=== PATIENT | female | born 1985 | race Caucasian/White ===

== ENCOUNTER 2019-07-02 17:58 | Emergency (ER) | payer MEDICAID ==
--- NOTE | 2019-07-02 19:29 | EDM.PDOC ---
ED HPI GENERAL MEDICAL PROBLEM - General Chief Complaint: Abdominal Pain Stated Complaint: abdominal pain Time Seen by Provider: 07/02/19 18:28 Source of Information: Reports: Patient History Limitations: Reports: No Limitations - History of Present Illness INITIAL COMMENTS - FREE TEXT/NARRATIVE: Patient comes to ER with complaint of lower abdominal pain/cramping that started around 5-5:30. Is 14 weeks . History of miscarriage last December. Has two health children at home. Reports relatively chronic discomfort in abdomen and back that has been bothersome with the . Also has been having issues with hard stools. Now is having looser stools over last several days. Denies bloody discharge vaginally. Has some mucus like discharge intermittently that is not new. No fevers/chills. No URI complaints. Denies SOB/respiratory changes. No chest pain. No palpitations. No urinary symptoms/UTI complaints/hematuria. Took two Tylenol which brought pain from an 8 down to a 2. lower abdomin Pain Score (Numeric/FACES): 3 - Related Data Allergies Allergy/AdvReac Type Severity Reaction Status Date / Time Bleach (Sodium Hypochlorite) Allergy shortness Verified 07/02/19 18:14 of breath, itching Sunlight Allergy rash, Uncoded 07/02/19 18:14 itching Home Meds: Home Meds Acetaminophen [Tylenol] 650 mg PO Q4H PRN 07/02/19 [History] Aspirin 81 mg PO DAILY 07/02/19 [History] Cyanocobalamin (Vitamin B12) [Vitamin B12] 1,000 mg PO DAILY 07/02/19 [History] Ferrous Sulfate 325 mg PO DAILY 07/02/19 [History] Insulin Aspart [NovoLOG] 6 units SUBCUT TIDMEALS 07/02/19 [History] Insulin Detemir [Levemir Flextouch] 41 unit SUBCUT BEDTIME 07/02/19 [History] Vit #76/Iron,Carb/Fa [Prenatabs Rx] 1 tab PO DAILY 07/02/19 [History] Past Medical History Endocrine/Metabolic History: Reports: Diabetes, Gestational, Diabetes, Type II, Obesity/BMI 30+ - History Comment History Comment: History of Learning Disorder Social & Family History - Tobacco Use Smoking Status *Q: Never Smoker Second Hand Smoke Exposure: Yes - Caffeine Use Caffeine Use: Reports: Soda - Recreational Drug Use Recreational Drug Use: No ED ROS GENERAL - Review of Systems Review Of Systems: Comprehensive ROS is negative, except as noted in HPI. ED EXAM, GENERAL - Physical Exam Exam: See Below Exam Limited By: No Limitations General Appearance: Alert, WD/WN, No Apparent Distress, Obese, Other ( intermittently winces in discomfort. Rubs lower abdomen and low back. ) Eye Exam: Bilateral Eye: EOMI, PERRL Ears: Normal External Exam, Hearing Grossly Normal Nose: No: Nasal Deformity, Nasal Swelling, Nasal Drainage Throat/Mouth: Normal Lips, Normal Voice, No Airway Compromise Head: Atraumatic, Normocephalic Neck: Normal Inspection, Supple, Non-Tender, Full Range of Motion Respiratory/Chest: No Respiratory Distress, Lungs Clear, Normal Breath Sounds, Chest Non-Tender Cardiovascular: Normal Peripheral Pulses, Regular Rate, Rhythm, No Edema, No Murmur GI/Abdominal: Normal Bowel Sounds, Soft, No Distention, No Abnormal Bruit, Tender (mild discomfort with palpation in lower mid abdomen/reproduces patient' s pain complaint). No: Guarding, Rigid, Rebound (Female) Exam: Deferred Rectal (Female) Exam: Deferred Back Exam: Other (no focal tenderness identified). No: CVA Tenderness (L), CVA Tenderness (R), Muscle Spasm Extremities: Non-Tender, Normal Capillary Refill Neurological: Alert, Oriented, Normal Cognition, Normal Gait, No Motor/Sensory Deficits Psychiatric: Normal Affect, Normal Mood Skin Exam: Warm, Dry, Intact, Normal Color Course - Vital Signs Last Recorded V/S: Last Vital Signs Temp 36.8 C 07/02/19 18:12 Pulse 77 07/02/19 18:12 Resp 18 07/02/19 18:12 BP 123/87 07/02/19 18:12 Pulse Ox 99 07/02/19 18:12 - Orders/Labs/Meds Labs: Laboratory Tests 07/02/19 07/02/19 07/02/19 Range/Units 18:09 18:35 18:35 WBC 10.5 H (4.0-10.2) K/uL RBC 4.35 (3.77-5.09) M/uL Hgb 13.2 (11.7-15.5) g/dL Hct 38.8 (34.0-46.0) % MCV 89.2 (84.0-98.0) fL MCH 30.3 (28.2-33.3) pg MCHC 34.0 (31.7-36.0) g/dL RDW 13.8 (11.2-14.1) % Plt Count 274 (150-350) K/uL Neut % (Auto) 71.4 (45.0-80.0) % Lymph % (Auto) 21.4 (10.0-50.0) % [place] % (Auto) 5.9 (2.0-14.0) % Eos % (Auto) 1.0 (0.0-5.0) % Baso % (Auto) 0.3 (0.0-2.0) % Neut # (Auto) 7.49 H (1.40-7.00) K/uL Lymph # (Auto) 2.24 (0.50-3.50) K/uL [place] # (Auto) 0.62 (0.00-1.00) K/uL Eos # (Auto) 0.10 (0.00-0.50) K/uL Baso # (Auto) 0.03 (0.00-0.20) K/uL Sodium 139 (136-145) mmol/L Potassium 4.1 (3.5-5.1) mmol/L Chloride 106 (98-107) mmol/L Carbon Dioxide 20.9 L (21.0-32.0) mmol/L BUN 15 (7-18) mg/dL Creatinine 0.50 L (0.51-1.17) mg/dL Est Cr Clr Drug Dosing 144.00 mL/min Estimated GFR (MDRD) > 60 mL/min Glucose 218 H (74-106) mg/dL Calcium 9.1 (8.5-10.1) mg/dL Total Bilirubin 0.1 L (0.2-1.0) mg/dL AST 14 L (15-37) U/L ALT 16 (12-78) U/L Alkaline Phosphatase 60 (46-116) IU/L Total Protein 6.8 (6.4-8.2) g/dL Albumin 2.8 L (3.4-5.0) g/dL HCG, Quant 01316 mIU/mL Specimen Type Urinvoid Urine Color Yellow Urine Appearance Clear Urine pH 6.0 (5.0-9.0) Ur Specific Lewis >= 1.030 (1.005-1.030) Urine Protein Negative (NEGATIVE) mg/dL Urine Glucose (UA) 500 H (NEGATIVE) mg/dL Urine Ketones 15 H (NEGATIVE) mg/dL Urine Occult Blood Negative (NEGATIVE) Urine Nitrite Negative (NEGATIVE) Urine Bilirubin Negative (NEGATIVE) Urine Urobilinogen 0.2 (0.2-1.0) E.U./dL Ur Leukocyte Esterase Negative (NEGATIVE) Urine RBC Not seen /HPF Urine WBC 0-5 /HPF Ur Epithelial Cells Rare /LPF Urine Bacteria Not seen (NONE TO FEW) /HPF Urine Mucus Rare H (NEGATIVE) /LPF Meds: Medications Discontinued Medications Generic Name Dose Route Start Last Admin Trade Name Freq PRN Reason Stop Dose Admin Tramadol HCl 100 mg 07/02/19 19:39 07/02/19 19:44 Ultram PO 07/02/19 19:40 100 mg ONETIME ONE Administration - Re-Assessments/Exams Free Text/Narrative Re-Assessment/Exam: heart tones located by nurse, 148 bpm. CBC/Chem/UA/QHcg performed. Overall labs unremarkable. WBC minimally elevated, suspect secondary to . Some glucose in urine. Pain may be related to GI issues given patient's history of intermittent loose stools and constipation. Suspect she may have IBS based on her history. Cannot rule out related pain due to expanding uterus, or threatened spontaneous . She reports having lower abdominal discomfort with previous pregnancies. Recommended that patient get ultrasound study to more closely look at the uterus/. Unable to do that here [facility] but able to refer her to [place]. Patient declined due to lack of transportation and said she would rather have it done here tomorrow when US tech is available. Given that there are strong heart tones/patient is more comfortable now/abdomen is soft/no vaginal bleeding present it is ok to wait until tomorrow to get the study. Precautions reviewed prior to discharge. She is to follow up closely with her primary provider and OBGyn after US performed. Departure - Departure Time of Disposition: 19:26 Disposition: Home, Self-Care 01 Condition: Good Clinical Impression: Lower abdominal pain, with 14 completed weeks gestation - Discharge Information *PRESCRIPTION DRUG MONITORING PROGRAM REVIEWED*: Not Applicable *COPY OF PRESCRIPTION DRUG MONITORING REPORT IN PATIENT BRENDAN: Not Applicable Instructions: Abdominal Pain During , [id number], Tramadol tablets Referrals: Afshan Fitzpatrick NP [Primary Care Provider] - Forms: ED Department Discharge Additional Instructions: Observe for any additional changes. You should get called early tomorrow by the hospital to get an ultrasound scheduled. Please follow up with Afshan for official results by phone or in person. We should be able to give you informal results after the study has been performed. Follow up otherwise as needed for any concerns. Sepsis Event Note - Evaluation Sepsis Screening Result: No Definite Risk - Focused Exam Vital Signs: Vital Signs Temp Pulse Resp BP Pulse Ox 07/02/19 18:12 36.8 C 77 18 123/87 99 Date Exam was Performed: 07/02/19 Time Exam was Performed: 20:22
[2019-07-02 19:37] LABS: CHLORIDE,CL 106 mmol/L (98-107); SODIUM,NA 139 mmol/L (136-145)
[2019-07-02] MEDS ORDERED: traMADol 50 MG Tab PO ONE (19:39)
== END 2019-07-02 19:55 | disposition home or self-care (01) ==
LOC: LL.ED 17:58
DX: O99.89 Other specified diseases and conditions complicating pregnancy, childbirth and the puerperium (principal); R10.30 Lower abdominal pain, unspecified; O24.414 Gestational diabetes mellitus in pregnancy, insulin controlled; O99.282 Endocrine, nutritional and metabolic diseases complicating pregnancy, second trimester; Z68.37 Body mass index [BMI] 37.0-37.9, adult; Z91.048 Other nonmedicinal substance allergy status; Z3A.14 14 weeks gestation of pregnancy; Z91.09 Other allergy status, other than to drugs and biological substances; Z79.82 Long term (current) use of aspirin; Z79.899 Other long term (current) drug therapy; Z77.22 Contact with and (suspected) exposure to environmental tobacco smoke (acute) (chronic); Z79.4 Long term (current) use of insulin
CPT/HCPCS: 36415; 80053; 81001; 84702; 85025; 99284; A9270

== ENCOUNTER 2022-04-19 15:50 | Emergency (ER) | payer MEDICARE, MEDICAID ==
[2022-04-19] MEDS ORDERED: cefTRIAXone 2 GM Vial IVPUSH SCH (16:00)
[2022-04-19] MEDS ORDERED: metroNIDAZOLE/Normal Saline 500 MG in Premix Bag 1 BAG IV ONE (16:01)
[2022-04-19] MEDS: Sodium Chloride 0.9% 10 ML Syringe FLUSH PRN ×2 (16:17→16:24)
[2022-04-19 16:38] VITALS: BP 138/98; PULSE 104
[2022-04-19] MEDS ORDERED: Ondansetron 4 MG/2 ML SDV IVPUSH ONE (16:45)
[2022-04-19] MEDS ORDERED: Morphine 4 MG/ML Syringe IVPUSH ONE (16:45)
== END 2022-04-19 17:15 ==
LOC: LL.ED 15:50
DX: K35.80 Unspecified acute appendicitis (principal); E66.9 Obesity, unspecified; Z88.8 Allergy status to other drugs, medicaments and biological substances; Z91.048 Other nonmedicinal substance allergy status
CPT/HCPCS: 36415; 74019; 74177; 80053; 85025; 86140; 96365; 96375; 99284; 99284-25; J0696; J2270; J2405; J3490; Q9967

== ENCOUNTER 2024-05-12 19:57 | Emergency (ER) | payer MEDICARE, MEDICAID ==
[2024-05-12] MEDS: Take Home: Amoxicillin 500 MG, 6 Cap Pack PO ONE (21:23)
== END 2024-05-12 21:25 | disposition home or self-care (01) ==
LOC: LL.ED 19:57
DX: J02.0 Streptococcal pharyngitis (principal); Z88.8 Allergy status to other drugs, medicaments and biological substances; Z91.048 Other nonmedicinal substance allergy status; Z79.4 Long term (current) use of insulin; Z79.899 Other long term (current) drug therapy; Z79.85 Long-term (current) use of injectable non-insulin antidiabetic drugs
CPT/HCPCS: 87428-QW; 87651; 99283; A9270-GY